=== PATIENT | female | born 1990 | race Caucasian/White ===

== ENCOUNTER 2018-11-17 16:31 | Emergency (ER) | payer MEDICAID, SELFPAY ==
[2018-11-17 16:31] VITALS: BP 141/82; PULSE 104; RESP 18; TEMP 36.5; O2SAT 100; BMI 40.5
--- NOTE | 2018-11-17 17:02 | ED.DCSUM_ITS ---
- ER Visit Summary Date of Service: 11/17/18 Chief Complaint: Neck infection History of Present Illness: The patient is a 27 F who presents for 2 weeks of a right-sided neck infection. Patient states that she had a tender nodule slowly develop on the right side of her neck that she was concerned for infection. She was seen 2 days ago at [facility] emergency department at which time it was I&D, with small amount of pus, and she was started on Bactrim. Now patient is developing a lesion on the left inner eye lid that she is concerned is the infection spreading. She states a few weeks ago she was working on an old dirty house and developed pustules on her palms, which she ruptured. They healed. Then patient developed the one on the neck, thinking the infection had spread. Now she has the one on the eye. She feels fatigued and has the sensation of her heart racing. She has a tingly feeling that will occasionally go from the neck lesion into her chest. Patient denies any fever. No vomiting or diarrhea, abdominal pain. Patient denies any history of IV drug use. Physical Examination: Vital signs: afebrile, hemodynamically stable, no hypoxia on room air General: well nourished, well developed, in no distress Skin: warm, dry, 3 healed round uniformly sized areas with darkened centers on the fingertips and one palm; 4 cm ovoid erythematous raised lesion with central scabbing, no active drainage, no subcutaneous induration, surrounding erythema or tenderness, no lymphangitis, no surrounding lymphadenitis HEENT: normocephalic and atraumatic; PERRL, EOMI, 1 cm nodule in the superior medial epicanthal region, no involvement of the conjunctiva, no conjunctiva or oral injection. Moist mucous membranes. Moderate acne on face. Cardiovascular: Tachycardic rate and rhythm without murmurs, no peripheral edema, 2+ pulses all distal extremities Respiratory: No increased work of breathing, lungs are clear to auscultation bilaterally, no rales, rhonchi or wheezing Abdominal: Abdomen is soft, nontender with normoactive bowel sounds, no guarding or rebound, no masses MSK: Moves all extremities, no deformities, normal strength Neuro: Awake and alert, oriented ?4. No facial droop, sensation and motor function intact and symmetric Test Results: Abnormal Lab Results 11/17/18 11/17/18 17:14 17:14 WBC 7.4 RBC 5.35 Hgb 13.7 Hct 43.4 MCV 81.1 MCH 25.6 L MCHC 31.6 L RDW 13.8 RDW Differential 40.8 Plt Count 268 MPV 9.5 Immature Gran % (Auto) 0.100 Neut % (Auto) 68.9 Lymph % (Auto) 23.4 Mellette % (Auto) 6.4 Eos % (Auto) 1.1 Baso % (Auto) 0.1 Absolute Neuts (auto) 5.1 Absolute Lymphs (auto) 1.73 Total Counted Not Reportable Sodium 138 Potassium 3.5 Chloride 105 Carbon Dioxide 26.0 Anion Gap 7 BUN 13 Creatinine 0.93 Estim Creat Clear Calc 86.80 Est GFR (MDRD) Af Amer 92 Est GFR (MDRD) Non-Af 76 BUN/Creatinine Ratio 14.0 Glucose 99 Calcium 8.7 Emergency Department Course and Treatment: Patient presents for ongoing development of abscesses, with the most recent on her right neck and now 1 possibly beginning in the corner of her left eye, although it has no fluctuance or drainage. Patient is already on Bactrim for 2 days, and has noted some improvement in the one on her right neck. Patient is mildly tachycardic, and given the location of the lesion on the right neck, basic lab work was performed to evaluate for any possible significant leukocytosis that would be concerning for a deeper space infection. The lesion does seem discrete to palpation with no deeper involvement, and with no surrounding tenderness this makes acute emergent pathology such as Lemierres less likely. Patient had a normal white count and no neutrophil predominance. Patient was started on Keflex in addition to her current antibiotic. She is only been on the Bactrim for 2 days, and thus we discussed that she may start seeing improvements in the next day or so. She is to follow-up with a primary care doctor in her area. We discussed strict return precautions and symptoms to look for that should prompt a return visit im mediately. Patient was discharged home. Treatment Plan: [] Disposition: [] Impression: Right neck abscess, left medial eyelid nodule This note was generated with [employer] software. It may contain incorrect words, spelling, and punctuation that were not noted in review of the chart prior to signing ED Disposition - Plan for ED Patient: Disposition: Home or Assisted Living Instructions: ED Cellulitis Facial Prescriptions: Cephalexin [Keflex] 500 mg PO Q6 #40 cap Referrals: Care Physician,No Primary [Primary Care Provider] - Additional Instructions: Continue taking your antibiotics for the full courses that they were prescribed, even if you feel better before they are complete. If at any time you develop a high fever, severe swelling and pain or red streaking around the lesions, worsening of the bump near your eye, or you have any other complaints, return immediately to the emergency department for another evaluation. Please find a primary care doctor in your area that you can follow-up with as soon as possible for another evaluation.
[2018-11-17 17:29] LABS: Absolute Lymphocyte Count 1.73 X10^3/ul (0.83-4.51); Absolute Neutrophil Count 5.1 X10^3/uL (2.0-7.7); Basophil# 0.01 X10^3/uL; Basophil% 0.1 % (0-1); Eosinophil# 0.08 X10^3/uL; Eosinophils% 1.1 % (0-5); Hematocrit 43.4 % (37-47); Hemoglobin 13.7 g/dl (12.0-15.0); Lymphocyte # 1.73 X10^3/ul (4.0); Lymphocyte % 23.4 % (19-41); Mean Corp Hgb Conc 31.6 g/gl (32-36); Mean Corpuscular Hgb 25.6 pg (27.0-32.0); Mean Corpuscular Volume 81.1 fL (81-99); Mean Platelet Vol. 9.5 fl (6.2-12.0); Monocyte# 0.47 X10^3/uL; Monocyte% 6.4 % (0-10); Neutrophil # 5.09 X10^3/uL (2.7-7.7); Neutrophil % 68.9 % (47-70); Platelet Count 268 K/mm3 (150-450); RBC Distribution Width CV 13.8 % (11.6-14.6); RBC Distribution Width SD 40.8 fl (35.1-43.9); Red Blood Count 5.35 M/mm3 (4.2-5.4); White Blood Count 7.4 K/mm3 (4.4-11.0)
[2018-11-17 17:31] LABS: POSITIVE COUNT NO; POSITIVE DIFFERENTIAL NO; POSITIVE MORPHOLOGY NO
[2018-11-17 17:42] LABS: Anion Gap 7 (5-15); BUN 13 mg/dL (7-18); Calcium,Total 8.7 mg/dL (8.5-10.1); Chloride 105 mmol/L (98-107); Creatinine, Serum 0.93 mg/dL (0.55-1.02); EST Glomerular Filtration Rate 76 mL/min (>60); Est Glom Filt Rate - Afr Amer 92 mL/min (>60); Glucose 99 mg/dL (74-106); Potassium 3.5 mmol/L (3.5-5.1); Sodium Level 138 mmol/L (136-145)
[2018-11-17] MEDS: Cephalexin 250 MG Capsule 500 MG PO (18:13)
== END 2018-11-17 18:17 | disposition home or self-care (01) ==
PROVIDERS: Emergency Provider Emergency Medicine
DX: L02.11 Cutaneous abscess of neck (principal); H02.89 Other specified disorders of eyelid; L70.9 Acne, unspecified; Z72.0 Tobacco use
CPT/HCPCS: 80048; 85025; 99284; A4216